=== PATIENT | male | born 1965 | race Two or more races ===

== ENCOUNTER 2017-12-03 17:00 | Emergency (ER) | END 2017-12-03 22:44 | disposition home or self-care (01) ==

== ENCOUNTER 2017-12-05 10:10 | Emergency (ER) | END 2017-12-05 10:56 | disposition home or self-care (01) ==

== ENCOUNTER 2017-12-12 13:23 | Emergency (ER) | END 2017-12-12 13:55 | disposition home or self-care (01) ==